=== PATIENT | male | born 1990 | race American Indian/Alaskan Native ===

== ENCOUNTER 2020-11-14 07:47 | Emergency (ER) | payer SELFPAY ==
[2020-11-14 08:45] VITALS: BP 124/71
--- NOTE | 2020-11-14 09:17 | Emergency Department Report ---
Chief Complaint: Medical Clearance Stated Complaint: PAINFUL SENSATION PENIS Time Seen by Provider: 11/14/20 09:00 - HPI History of Present Illness: 29 year old male who denies any significant past medical conditions presents to ED with complaints of tingling sensation to head of his penis x 4 days and today noticed that he started with penile discharge. He denies any testicular pain, or swelling. He denies any abd pain, back pain, or hematuria, fever or chills. Patient states he is concerned for STD and would like to get tested. He admits to unprotected sexual intercourse with new sexual partner. - Exam Vital Signs: Vital Signs 11/14/20 08:43 Temperature 98.1 F Pulse Rate 70 Respiratory 17 Rate Blood Pressure 124/71 O2 Sat by Pulse 97 Oximetry MSE screening note: Focused history and physical exam performed. Due to findings the following was ordered: ED Medical Decision Making - Medical Decision Making 29 year old male who denies any significant past medical conditions presents to ED with complaints of tingling sensation to head of his penis x 4 days and today noticed that he started with penile discharge. He denies any testicular pain, or swelling. He denies any abd pain, back pain, or hematuria, fever or chills. Patient states he is concerned for STD and would like to get tested. He admits to unprotected sexual intercourse with new sexual partner. 0900: Patient is well appearing, not toxic and not in any acute distress. Patient is neurologically intact with normal gait. His VS stable. Informed patient that based his history, PE, and current condition explained to patient that he does not have a life threatening condition that requires emergent intervention at this time. Informed him that he will need to get treated and we can give referral to local clinics that he can follow up with today who can help treat his symptoms. Patient expressed understanding. He was given resource sheet with local clinics that he can follow up with. Pt was stable at time to discharge. ED Disposition for MSE Clinical Impression: Encounter for medical screening examination, Penile discharge Disposition: HOME / SELF CARE / HOMELESS Is pt being admited?: No Does the pt Need Aspirin: No Condition: Stable Referrals: PRIMARY CARE, [Primary Care Provider] - 3-5 Days ED Review of Systems ROS: Stated complaint: PAINFUL SENSATION PENIS Other details as noted in HPI Comment: All other systems reviewed and negative Constitutional: denies: chills, fever Gastrointestinal: denies: abdominal pain, nausea, vomiting, diarrhea, constipation, hematemesis, melena, hematochezia Genitourinary: dysuria, discharge. denies: urgency, frequency, hematuria, testicular pain, testicular mass Skin: denies: rash, lesions, change in color, change in hair/nails, pruritus, other Neurological: denies: headache, weakness, paresthesias, abnormal gait, vertigo Psychiatric: denies: anxiety, depression, auditory hallucinations, visual hallucinations, homicidal thoughts, suicidal thoughts Hematological/Lymphatic: denies: easy bleeding, easy bruising, swollen glands ED Physical Exam - General Limitations: No Limitations General appearance: alert, in no apparent distress - Head Head exam: Present: atraumatic, normocephalic, normal inspection - Eye Eye exam: Present: normal appearance, PERRL, EOMI Pupils: Present: normal accommodation - Respiratory Respiratory exam: Present: normal lung sounds bilaterally. Absent: respiratory distress, wheezes, rales, rhonchi - Cardiovascular Cardiovascular Exam: Present: regular rate, normal rhythm, normal heart sounds - Neurological Exam Neurological exam: Present: alert, oriented X3, CN II-XII intact - Psychiatric Psychiatric exam: Present: normal affect, normal mood - Skin Skin exam: Present: intact
== END 2020-11-14 09:27 | disposition home or self-care (01) ==
LOC: ED 07:47
DX: Z13.9 Encounter for screening, unspecified (principal); R36.9 Urethral discharge, unspecified
CPT/HCPCS: 99281